=== PATIENT | male | born 1945 | race Caucasian/White ===

== ENCOUNTER 2018-09-12 08:46 | Day surgery (SDC) | payer MEDICARE, OTHER ==
[2018-09-12] MEDS ORDERED: Lidocaine 1% PF 2 ML SDV INJECT ONE (08:47)
[2018-09-12] MEDS ORDERED: Propofol 200 MG/20 ML SDV IV ONE (08:47)
[2018-09-12] MEDS ORDERED: Lactated Ringers 1,000 ML IV SCH (09:00)
--- NOTE | 2018-09-12 10:07 | PCM.OPNOTE ---
- General Post-Op/Procedure Note Date of Surgery/Procedure: 09/12/18 Operative Procedure(s): c scope Findings: scattered diverticulosis Pre Op Diagnosis: screening Post-Op Diagnosis: scattered diverticulosis Anesthesia Technique: MAC Primary Surgeon: Phi Arias Anesthesia Provider: Miguel Sagastume Pathology: none Complications: None Condition: Good Free Text/Narrative:: see dictation
--- NOTE | 2018-09-12 17:00 | OR ---
DATE OF OPERATION: 09/12/2018 SURGEON: Phi Arias MD PROCEDURE PERFORMED: Colonoscopy. PREOPERATIVE DIAGNOSIS: Screening for colon cancer. POSTOPERATIVE DIAGNOSIS: Colonic diverticulosis. INDICATIONS FOR PROCEDURE: This 73-year-old white male presents for followup colonoscopy. He was without complaints. DESCRIPTION OF PROCEDURE: After an excellent IV sedation was administered, digital rectal exam was performed. No marked abnormality was noted. Flexible colonoscope was inserted and advanced to the cecum. The prep was excellent and following findings were noted. Ascending colon, occasional diverticula. Transverse colon, occasional diverticula. Descending colon and sigmoid colon, occasional diverticula. Rectum and anus, unremarkable. Colon was deflated and scope was removed. RECOMMENDATIONS: Repeat colonoscopy on a p.r.n. basis given the patient's age or in 10 years. /[id number] /KENAN
== END 2018-09-12 11:00 | disposition home or self-care (01) ==
LOC: FB.SDS 08:46
PROVIDERS: ATTEND Surgery
DX: Z12.11 Encounter for screening for malignant neoplasm of colon (principal); K57.30 Diverticulosis of large intestine without perforation or abscess without bleeding; E11.9 Type 2 diabetes mellitus without complications; K21.9 Gastro-esophageal reflux disease without esophagitis; Z88.0 Allergy status to penicillin; Z88.2 Allergy status to sulfonamides; Z88.1 Allergy status to other antibiotic agents; Z88.8 Allergy status to other drugs, medicaments and biological substances; Z87.891 Personal history of nicotine dependence; Z87.19 Personal history of other diseases of the digestive system; Z79.899 Other long term (current) drug therapy
CPT/HCPCS: 00811; G0121; J2001; J2704; J7120

== ENCOUNTER 2020-11-24 09:11 | Emergency (ER) | payer MEDICARE, OTHER ==
[2020-11-24] MEDS ORDERED: Pantoprazole 40 MG Vial IVPUSH ONE (10:06)
--- NOTE | 2020-11-24 10:06 | EDM.PDOC ---
ED HPI GENERAL MEDICAL PROBLEM - General Chief Complaint: General Stated Complaint: LOW HEMOGLOBIN Time Seen by Provider: 11/24/20 09:57 Source of Information: Reports: Patient History Limitations: Reports: No Limitations - History of Present Illness INITIAL COMMENTS - FREE TEXT/NARRATIVE: Patient has a h/o Myelodysplastic Syndrome and presents with dyspnea on exertion x 1 week with black stools (which he attributes to iron supplements). Stool hemoccult has been negative. Baseline Hb is 10. In August 2020 his Hb dropped to 7 after back surgery, he was transfused at that time. PMD noted Hb 7.4 @2 weeks ago so was started on iron supplements. Hb was 5.4 yesterday, so his bottle hop sent him to [facility] for transfusion. He was admitted for outpatient therapy, however there were unidentifiable antibodies, so blood was sent to [place] for further analysis. This morning he developed black diarrhea. Patient denies abdominal pain, no prior h/o GI bleed or PUD. He had been on Ibuprofen @2 weeks ago after a tooth was pulled. He drinks alcohol rarely. Denies h/o CAD. - Related Data Allergies Allergy/AdvReac Type Severity Reaction Status Date / Time Penicillins Allergy Other Verified 11/23/20 17:51 Sulfa (Sulfonamide Allergy Rash Verified 11/23/20 17:51 Antibiotics) Tetracyclines Allergy Rash Verified 11/23/20 17:51 Home Meds: Home Meds Glucosamine HCl/Msm [Glucosamine MSM] 1 tab PO BID 09/11/18 [History] Melatonin 1 tab PO BEDTIME 09/11/18 [History] Mometasone Furoate [Nasonex [place]] 2 spray INH DAILY PRN 09/11/18 [History] Phenylephrine HCl/[place] Butter [Preparation H Suppository] 1 supp RECTAL DAILY PRN 09/11/18 [History] allopurinoL [Zyloprim] 1 tab PO DAILY 09/11/18 [History] Ferrous Sulfate 325 mg PO BID 11/23/20 [History] Finasteride 5 mg PO DAILY 11/24/20 [History] Tamsulosin [Tamsulosin 24 Hr] 0.4 mg PO DAILY 11/24/20 [History] Past Medical History HEENT History: Reports: Impaired Vision Cardiovascular History: Denies: CAD Gastrointestinal History: Reports: GERD Musculoskeletal History: Reports: Arthritis, Gout Hematologic History: Reports: Anemia, Other (See Below) (Myelodysplastic Syndrome) - Past Surgical History HEENT Surgical History: Reports: Cataract Surgery, Eye Surgery GI Surgical History: Reports: Cholecystectomy, Colonoscopy Neurological Surgical History: Reports: Laminectomy Musculoskeletal Surgical History: Reports: Other (See Below) Other Musculoskeletal Surgeries/Procedures:: back surgery Social & Family History - Family History Family Medical History: No Pertinent Family History - Caffeine Use Caffeine Use: Reports: Coffee ED ROS GENERAL - Review of Systems Review Of Systems: Comprehensive ROS is negative, except as noted in HPI. ED EXAM, GENERAL - Physical Exam Exam: See Below Exam Limited By: No Limitations General Appearance: Alert, WD/WN, No Apparent Distress Throat/Mouth: No Airway Compromise Head: Atraumatic, Normocephalic Neck: Full Range of Motion Respiratory/Chest: No Respiratory Distress, Lungs Clear, Normal Breath Sounds Cardiovascular: Regular Rate, Rhythm, No Murmur GI/Abdominal: Normal Bowel Sounds, Soft, Non-Tender, No Distention Rectal (Males) Exam: Heme - Stool Extremities: Normal Range of Motion Neurological: Alert, Oriented, Normal Cognition, Other (GCS=15) Psychiatric: Normal Affect, Normal Mood Skin Exam: Warm, Dry, Pallor Course - Vital Signs Last Recorded V/S: Last Vital Signs Temp 36.9 C 11/24/20 09:11 Pulse 98 11/24/20 09:11 Resp 18 11/24/20 09:11 BP 125/47 L 11/24/20 09:11 Pulse Ox 98 11/24/20 09:11 - Orders/Labs/Meds Labs: Laboratory Tests 11/24/20 11/24/20 Range/Units 10:20 10:20 WBC 2.8 L (3.2-10.1) x10-3/uL RBC 1.75 L (3.90-5.90) x10(6)uL Hgb 5.0 L* (12.9-17.7) g/dL Hct 15.7 L* (38.3-50.1) % MCV 90.2 (80.8-98.7) fL MCH 28.6 (27.0-33.3) pg MCHC 31.7 (28.7-35.3) g/dL RDW 32.9 H (12.4-15.0) % Plt Count 13 L* (117-477) x10(3)uL MPV 13.9 H (6.7-11.0) fL Add Manual Diff Yes Neutrophils % (Manual) 50 (46-82) % Lymphocytes % (Manual) 46 H (13-37) % Monocytes % (Manual) 3 L (4-12) % Eosinophils % (Manual) 1 (0-5) % Polychromasia Moderate H Poikilocytosis Many H Tear Drop Cells Moderate H Ovalocytes Moderate H Sodium 139 (135-145) mmol/L Potassium 4.6 (3.5-5.3) mmol/L Chloride 102 (100-110) mmol/L Carbon Dioxide 25 (21-32) mmol/L BUN 14 (7-18) mg/dL Creatinine 0.9 (0.70-1.30) mg/dL Est Cr Clr Drug Dosing 76.64 mL/min Estimated GFR (MDRD) > 60 (>60) BUN/Creatinine Ratio 15.6 (9-20) Glucose 104 (80-116) mg/dL Calcium 8.6 (8.6-10.2) mg/dL Total Bilirubin 1.8 H (0.1-1.3) mg/dL AST 11 (5-25) IU/L ALT 14 (12-36) U/L Alkaline Phosphatase 60 (56-112) IU/L Total Protein 6.6 (6.0-8.0) g/dL Albumin 3.6 (3.2-4.6) g/dL Globulin 3.0 g/dL Albumin/Globulin Ratio 1.2 Meds: Medications Discontinued Medications Generic Name Dose Route Start Last Admin Trade Name Freq PRN Reason Stop Dose Admin Pantoprazole Sodium 40 mg 11/24/20 10:06 Pantoprazole 40 Mg Vial IVPUSH 11/24/20 10:07 ONETIME ONE - Re-Assessments/Exams Free Text/Narrative Re-Assessment/Exam: 11/24/20 11:13 Dr. Rodríguez accepts patient for transfer to [facility] Departure - Departure Time of Disposition: 11:13 Disposition: DC/Tfer to Acute Hospital 02 Condition: Fair Clinical Impression: Pancytopenia, Myelodysplasia (myelodysplastic syndrome) - Discharge Information *PRESCRIPTION DRUG MONITORING PROGRAM REVIEWED*: No *COPY OF PRESCRIPTION DRUG MONITORING REPORT IN PATIENT KADE: Not Applicable Referrals: Hoang Suazo MD [Primary Care Provider] - Forms: ED Department Discharge Sepsis Event Note (ED) - Focused Exam Vital Signs: Vital Signs Temp Pulse Resp BP Pulse Ox 11/24/20 09:11 36.9 C 98 18 125/47 L 98
== END 2020-11-24 15:20 ==
LOC: FB.ED 09:11
DX: D46.9 Myelodysplastic syndrome, unspecified (principal); D61.818 Other pancytopenia; Z88.0 Allergy status to penicillin; Z88.1 Allergy status to other antibiotic agents; Z88.2 Allergy status to sulfonamides
CPT/HCPCS: 36415; 80053; 82272; 85025; 93010; 96374; 99285; C9113

== ENCOUNTER 2024-01-03 12:47 | Inpatient (IN) | payer MEDICARE, OTHER ==
[2024-01-03 13:51] LABS: BLOOD UREA NITROGEN,BUN 12 mg/dL (7-18); BUN/CREATININE RATIO 13.3 (9-20); CALCIUM 8.2 mg/dL (8.6-10.2); CARBON DIOXIDE,CO2 30 mmol/L (21-32); CHLORIDE,CL 103 mmol/L (100-110); CREATININE 0.9 mg/dL (0.70-1.30); EST CRCL DRUG DOSING (CG) 70.88 mL/min; ESTIMATED GFR 87 mL/min (>60); GLUCOSE RANDOM 85 mg/dL (80-116); POTASSIUM,K 4.4 mmol/L (3.5-5.3); SODIUM,NA 141 mmol/L (135-145)
[2024-01-03 13:57] LABS: A/G RATIO 0.8; ALANINE AMINOTRANSFERASE,ALT 13 U/L (12-36); ALKALINE PHOSPHATASE 77 IU/L (56-112); ASPARTATE AMNIOTRANSFERASE,AST 23 IU/L (5-25); BILIRUBIN TOTAL 1.3 mg/dL (0.1-1.3); PROTEIN TOTAL,TP 6.7 g/dL (6.0-8.0)
[2024-01-03] MEDS: Iopamidol 755 Mg/ML 100 ML Bottle IV SCH (14:49)
[2024-01-03] MEDS: Furosemide 20 MG/2 ML VIAL IVPUSH ONE (14:50)
[2024-01-03] MEDS ORDERED: Acetaminophen 650 MG Supp RECTAL PRN (17:48)
[2024-01-03] MEDS ORDERED: Acetaminophen 325 MG Tab PO PRN (17:48)
[2024-01-03] MEDS: Levofloxacin/Dextrose 5%-Water 750 MG in Premix Bag 1 BAG IV SCH (18:27)
[2024-01-03] MEDS: Sodium Chloride 0.9% 10 ML Syringe FLUSH PRN (20:00)
[2024-01-03] MEDS: Metoprolol Tartrate 25 MG Tab PO SCH (21:10)
[2024-01-03] MEDS: Heparin Sodium 5,000 Units/ML Vial SUBCUT SCH (21:11)
[2024-01-04] MEDS: Melatonin 3 MG Tab PO PRN (01:49)
[2024-01-04 06:24] LABS: HEMATOCRIT 27.9 % (38.3-50.1); HEMOGLOBIN 8.7 g/dL (12.9-17.7); MEAN CORPUSCULAR HEMOGLOBIN 26.7 pg (27.0-33.3); MEAN CORPUSCULAR HGB CONC 31.2 g/dL (28.7-35.3); MEAN CORPUSCULAR VOLUME 85.6 fL (80.8-98.7); MEAN PLATELET VOLUME 8.6 fL (6.7-11.0); PLATELET COUNT,PLT 314 x10(3)uL (117-477); RED BLOOD CELL COUNT 3.26 x10(6)uL (3.90-5.90); RED CELL DISTRIBUTION WIDTH 33.5 % (12.4-15.0); WHITE BLOOD CELL COUNT,WBC 5.3 x10-3/uL (3.2-10.1)
[2024-01-04 06:38] LABS: A/G RATIO 0.8; ALANINE AMINOTRANSFERASE,ALT 11 U/L (12-36); ALBUMIN 2.8 g/dL (3.2-4.6); ALKALINE PHOSPHATASE 73 IU/L (56-112); ASPARTATE AMNIOTRANSFERASE,AST 15 IU/L (5-25); BILIRUBIN TOTAL 1.5 mg/dL (0.1-1.3); BLOOD UREA NITROGEN,BUN 12 mg/dL (7-18); CALCIUM 7.9 mg/dL (8.6-10.2); CARBON DIOXIDE,CO2 29 mmol/L (21-32); CHLORIDE,CL 103 mmol/L (100-110); EST CRCL DRUG DOSING (CG) 61.85 mL/min; ESTIMATED GFR 77 mL/min (>60); GLUCOSE RANDOM 80 mg/dL (80-116); MAGNESIUM 1.7 mg/dL (1.8-2.5); POTASSIUM,K 4.2 mmol/L (3.5-5.3); PROTEIN TOTAL,TP 6.3 g/dL (6.0-8.0); SODIUM,NA 140 mmol/L (135-145)
[2024-01-04 07:07] LABS: BAND PERCENT MAN 1 % (0-6); EOSINOPHILS PERCENT MAN 2 % (0-5); LYMPHOCYTES PERCENT MAN 20 % (13-37); MONOCYTES PERCENT MAN 5 % (4-12); SEG NEUTROPHILS PERCENT MAN 72 % (46-82)
[2024-01-04 07:11] LABS: ANISOCYTOSIS MODERATE; HYPOCHROMASIA FEW; MICROCYTOSIS FEW; OVALOCYTES FEW; POIKILOCYTOSIS MODERATE
[2024-01-04] MEDS ORDERED: Carboxymethylcellulose Sodium 0.5% Ophth Soln 15 ML Bottle EYEBOTH PRN (09:47)
[2024-01-04] MEDS: Furosemide 40 MG/4 ML VIAL IVPUSH SCH ×2 (10:04→15:51)
[2024-01-04] MEDS: Magnesium Oxide 400 MG Tab PO ONE (10:04)
[2024-01-04] MEDS: Aspirin 81 MG Tab.EC PO SCH (10:05)
[2024-01-04] MEDS: Ascorbic Acid 500 MG Tab PO SCH (10:06)
[2024-01-04] MEDS: Cholecalciferol (Vitamin D3) 5,000 UNIT Cap PO SCH (10:06)
[2024-01-04] MEDS: Beta-Carotene (Vitamin A) w/Vitamin C & E plus Minerals Tab PO SCH (10:06)
[2024-01-04] MEDS: Psyllium 0.52 GM Cap PO SCH (13:58)
[2024-01-04] MEDS ORDERED: guaiFENesin/Dextromethorphan 100-10 MG/5 ML Soln 5 ML Cup PO PRN (14:05)
[2024-01-04 18:00] LABS: PROCALCITONIN 0.02 ng/mL
[2024-01-04] MEDS ORDERED: CLINDAMYCIN PHOSPHATE TOP SCH (21:00)
[2024-01-04] MEDS: Chondroitin/Glucosamine Cap PO SCH (21:22)
[2024-01-04] MEDS: Melatonin 3 MG Tab PO SCH (21:23)
[2024-01-04] MEDS: Loratadine 10 MG Tab PO SCH (21:36)
[2024-01-05 06:38] LABS: HEMATOCRIT 31.9 % (38.3-50.1); MEAN CORPUSCULAR HEMOGLOBIN 26.7 pg (27.0-33.3); MEAN CORPUSCULAR HGB CONC 31.3 g/dL (28.7-35.3); MEAN CORPUSCULAR VOLUME 85.3 fL (80.8-98.7); MEAN PLATELET VOLUME 8.7 fL (6.7-11.0); PLATELET COUNT,PLT 392 x10(3)uL (117-477); RED BLOOD CELL COUNT 3.74 x10(6)uL (3.90-5.90); RED CELL DISTRIBUTION WIDTH 33.2 % (12.4-15.0); WHITE BLOOD CELL COUNT,WBC 5.1 x10-3/uL (3.2-10.1)
[2024-01-05 06:47] LABS: A/G RATIO 0.8; ALANINE AMINOTRANSFERASE,ALT 15 U/L (12-36); ALBUMIN 3.1 g/dL (3.2-4.6); ALKALINE PHOSPHATASE 72 IU/L (56-112); ASPARTATE AMNIOTRANSFERASE,AST 16 IU/L (5-25); BILIRUBIN TOTAL 1.5 mg/dL (0.1-1.3); BLOOD UREA NITROGEN,BUN 16 mg/dL (7-18); CALCIUM 8.1 mg/dL (8.6-10.2); CARBON DIOXIDE,CO2 32 mmol/L (21-32); CHLORIDE,CL 102 mmol/L (100-110); EST CRCL DRUG DOSING (CG) 61.85 mL/min; ESTIMATED GFR 77 mL/min (>60); GLUCOSE RANDOM 86 mg/dL (80-116); POTASSIUM,K 3.9 mmol/L (3.5-5.3); PROTEIN TOTAL,TP 6.9 g/dL (6.0-8.0); SODIUM,NA 142 mmol/L (135-145)
[2024-01-05 07:38] LABS: EOSINOPHILS PERCENT MAN 5 % (0-5); LYMPHOCYTES PERCENT MAN 36 % (13-37); MONOCYTES PERCENT MAN 6 % (4-12); SEG NEUTROPHILS PERCENT MAN 53 % (46-82)
[2024-01-05 07:41] LABS: ANISOCYTOSIS MODERATE; HYPOCHROMASIA FEW; MICROCYTOSIS FEW; OVALOCYTES FEW; POIKILOCYTOSIS MODERATE
[2024-01-05] MEDS: Tamsulosin 0.4 MG Cap.ER PO SCH (08:08)
[2024-01-05] MEDS: Finasteride 5 MG Tab PO SCH (08:08)
[2024-01-05] MEDS: Multivitamin Tab PO SCH (08:08)
[2024-01-05] MEDS: Furosemide 40 MG Tab PO SCH (10:50)
[2024-01-05] MEDS: Triamcinolone Acetonide 40 MG/ML 1 ML SDV IM ONE (10:51)
[2024-01-05] MEDS ORDERED: Levofloxacin 750 MG Tab PO SCH (17:00)
[2024-01-07 01:16] LABS: STREPTOCOCCUS PNEUMONIAE AG,UR Negative (Negative)
[2024-01-08 00:38] LABS: LEGIONELLA PNEUMOPHILA AG,URN Negative (Negative)
== END 2024-01-05 16:00 | disposition home or self-care (01) | DRG 193 ==
LOC: FB.ED 12:47 → FB.MS 15:47
PROVIDERS: ADMIT Internal Medicine; ATTEND Family Medicine
DX: J18.9 Pneumonia, unspecified organism (principal); I50.31 Acute diastolic (congestive) heart failure; J96.01 Acute respiratory failure with hypoxia; J30.1 Allergic rhinitis due to pollen; D64.9 Anemia, unspecified; N40.1 Benign prostatic hyperplasia with lower urinary tract symptoms; Z95.2 Presence of prosthetic heart valve; Z95.0 Presence of cardiac pacemaker; I50.9 Heart failure, unspecified; Z79.01 Long term (current) use of anticoagulants; Z79.82 Long term (current) use of aspirin; Z90.49 Acquired absence of other specified parts of digestive tract; Z98.42 Cataract extraction status, left eye; Z79.899 Other long term (current) drug therapy; Z98.41 Cataract extraction status, right eye; Z90.89 Acquired absence of other organs; Z87.891 Personal history of nicotine dependence; Z88.0 Allergy status to penicillin; Z88.1 Allergy status to other antibiotic agents; Z88.2 Allergy status to sulfonamides
CPT/HCPCS: 36415; 71260; 80053; 83735; 83880; 84145; 84484; 85025; 87040; 87449; 87899; 93306; 96374; 97165-GO; 99222; 99232; 99238; 99285; 99285-25; A9270-GY; J1644; J1940; J1956; J3301; J3490; Q9967; U0002

== ENCOUNTER 2024-04-11 13:42 | Inpatient (IN) | payer MEDICARE, OTHER ==
[2024-04-11 14:32] LABS: HEMATOCRIT 24.1 % (38.3-50.1); HEMOGLOBIN 7.7 g/dL (12.9-17.7); MEAN CORPUSCULAR HEMOGLOBIN 29.3 pg (27.0-33.3); MEAN CORPUSCULAR HGB CONC 32.1 g/dL (28.7-35.3); MEAN CORPUSCULAR VOLUME 91.2 fL (80.8-98.7); MEAN PLATELET VOLUME 8.8 fL (6.7-11.0); PLATELET COUNT,PLT 642 x10(3)uL (117-477); RED BLOOD CELL COUNT 2.64 x10(6)uL (3.90-5.90); RED CELL DISTRIBUTION WIDTH 29.6 % (12.4-15.0); WHITE BLOOD CELL COUNT,WBC 11.5 x10-3/uL (3.2-10.1)
[2024-04-11 14:36] LABS: BLOOD UREA NITROGEN,BUN 12 mg/dL (7-18); BUN/CREATININE RATIO 13.3 (9-20); CALCIUM 8.1 mg/dL (8.6-10.2); CARBON DIOXIDE,CO2 29 mmol/L (21-32); CHLORIDE,CL 103 mmol/L (100-110); CREATININE 0.9 mg/dL (0.70-1.30); ESTIMATED GFR 87 mL/min (>60); GLUCOSE RANDOM 108 mg/dL (80-116); POTASSIUM,K 3.3 mmol/L (3.5-5.3); SODIUM,NA 142 mmol/L (135-145)
[2024-04-11] MEDS: Furosemide 40 MG/4 ML VIAL IVPUSH SCH (15:10)
[2024-04-11] MEDS: Sodium Chloride 0.9% 10 ML Syringe FLUSH PRN (15:20)
[2024-04-11 15:50] LABS: BAND PERCENT MAN 5 % (0-6); EOSINOPHILS PERCENT MAN 2 % (0-5); LYMPHOCYTES PERCENT MAN 12 % (13-37); MONOCYTES PERCENT MAN 4 % (4-12); SCHISTOCYTES FEW; SEG NEUTROPHILS PERCENT MAN 77 % (46-82)
[2024-04-11] MEDS ORDERED: Carboxymethylcellulose Sodium 0.5% Ophth Soln 15 ML Bottle EYEBOTH PRN (19:17)
[2024-04-11] MEDS: Lidocaine 4% 1 each Patch TOP SCH (21:34)
[2024-04-11] MEDS: Metoprolol Tartrate 25 MG Tab PO SCH (21:35)
[2024-04-11] MEDS: Chondroitin/Glucosamine Cap PO SCH (21:35)
[2024-04-11] MEDS: Psyllium 0.52 GM Cap PO SCH (21:35)
[2024-04-11] MEDS: Melatonin 3 MG Tab PO SCH (21:35)
[2024-04-11] MEDS: Beta-Carotene (Vitamin A) w/Vitamin C & E plus Minerals Tab PO SCH (21:35)
[2024-04-11] MEDS: Albuterol/Ipratropium 3.0-0.5 MG/3 ML Neb Soln INH PRN (21:55)
[2024-04-12 06:54] LABS: HEMATOCRIT 22.3 % (38.3-50.1); HEMOGLOBIN 7.2 g/dL (12.9-17.7); MEAN CORPUSCULAR HEMOGLOBIN 29.2 pg (27.0-33.3); MEAN CORPUSCULAR HGB CONC 32.3 g/dL (28.7-35.3); MEAN CORPUSCULAR VOLUME 90.4 fL (80.8-98.7); MEAN PLATELET VOLUME 9.1 fL (6.7-11.0); PLATELET COUNT,PLT 618 x10(3)uL (117-477); RED BLOOD CELL COUNT 2.46 x10(6)uL (3.90-5.90); RED CELL DISTRIBUTION WIDTH 29.6 % (12.4-15.0); WHITE BLOOD CELL COUNT,WBC 26.1 x10-3/uL (3.2-10.1)
[2024-04-12 07:02] LABS: A/G RATIO 0.8; ALANINE AMINOTRANSFERASE,ALT 43 U/L (12-36); ALBUMIN 2.8 g/dL (3.2-4.6); ALKALINE PHOSPHATASE 111 IU/L (56-112); ASPARTATE AMNIOTRANSFERASE,AST 18 IU/L (5-25); BILIRUBIN TOTAL 1.1 mg/dL (0.1-1.3); BLOOD UREA NITROGEN,BUN 9 mg/dL (7-18); CARBON DIOXIDE,CO2 29 mmol/L (21-32); CHLORIDE,CL 103 mmol/L (100-110); CREATININE 0.9 mg/dL (0.70-1.30); EST CRCL DRUG DOSING (CG) 68.72 mL/min; ESTIMATED GFR 87 mL/min (>60); GLUCOSE RANDOM 101 mg/dL (80-116); POTASSIUM,K 3.4 mmol/L (3.5-5.3); PROTEIN TOTAL,TP 6.4 g/dL (6.0-8.0); SODIUM,NA 139 mmol/L (135-145)
[2024-04-12 07:09] LABS: TROPONIN I 8.9 pg/mL (4.0-60.3)
[2024-04-12 07:14] LABS: C-REACTIVE PROTEIN 6.43 mg/dL (<0.50)
[2024-04-12] MEDS ORDERED: Carboxymethylcellulose Sodium 0.5% Ophth Soln 15 ML Bottle EYEBOTH PRN (07:36)
[2024-04-12 08:16] LABS: BAND PERCENT MAN 5 % (0-6); EOSINOPHILS PERCENT MAN 1 % (0-5); HYPOCHROMASIA FEW; LYMPHOCYTES PERCENT MAN 5 % (13-37); MONOCYTES PERCENT MAN 2 % (4-12); SEG NEUTROPHILS PERCENT MAN 87 % (46-82)
[2024-04-12 08:17] LABS: ANISOCYTOSIS MODERATE; GIANT PLATELETS MODERATE; MICROCYTOSIS MODERATE; OVALOCYTES FEW; POIKILOCYTOSIS MODERATE; TARGET CELLS FEW; TOXIC GRANULATION MODERATE (NOT SEEN)
[2024-04-12] MEDS: Cholecalciferol (Vitamin D3) 5,000 UNIT Cap PO SCH (08:19)
[2024-04-12] MEDS: Aspirin 81 MG Tab.EC PO SCH (08:19)
[2024-04-12] MEDS: Tamsulosin 0.4 MG Cap.ER PO SCH (08:20)
[2024-04-12] MEDS: Finasteride 5 MG Tab PO SCH (08:20)
[2024-04-12] MEDS: Psyllium 0.52 GM Cap PO SCH (11:19)
[2024-04-12] MEDS: Potassium Chloride 20 MEQ Tab.ER PO ONE (14:44)
[2024-04-12] MEDS: Furosemide 40 MG/4 ML VIAL IVPUSH ONE (14:45)
[2024-04-12] MEDS: Enoxaparin 40 MG/0.4 ML Syringe SUBCUT SCH (17:28)
[2024-04-12] MEDS: Acetaminophen 500 MG Tab PO PRN (17:34)
[2024-04-12] MEDS: Loratadine 10 MG Tab PO SCH (20:43)
[2024-04-13 06:30] LABS: HEMATOCRIT 22.9 % (38.3-50.1); HEMOGLOBIN 7.4 g/dL (12.9-17.7); MEAN CORPUSCULAR HEMOGLOBIN 29.1 pg (27.0-33.3); MEAN CORPUSCULAR HGB CONC 32.4 g/dL (28.7-35.3); MEAN CORPUSCULAR VOLUME 89.9 fL (80.8-98.7); MEAN PLATELET VOLUME 8.1 fL (6.7-11.0); PLATELET COUNT,PLT 610 x10(3)uL (117-477); RED BLOOD CELL COUNT 2.55 x10(6)uL (3.90-5.90); RED CELL DISTRIBUTION WIDTH 29.9 % (12.4-15.0); WHITE BLOOD CELL COUNT,WBC 14.6 x10-3/uL (3.2-10.1)
[2024-04-13 06:36] LABS: BLOOD UREA NITROGEN,BUN 12 mg/dL (7-18); CALCIUM 8.3 mg/dL (8.6-10.2); CARBON DIOXIDE,CO2 30 mmol/L (21-32); CHLORIDE,CL 105 mmol/L (100-110); EST CRCL DRUG DOSING (CG) 61.85 mL/min; ESTIMATED GFR 77 mL/min (>60); GLUCOSE RANDOM 101 mg/dL (80-116); POTASSIUM,K 3.7 mmol/L (3.5-5.3); SODIUM,NA 142 mmol/L (135-145)
[2024-04-13 06:55] LABS: BAND PERCENT MAN 2 % (0-6); EOSINOPHILS PERCENT MAN 9 % (0-5); LYMPHOCYTES PERCENT MAN 13 % (13-37); MONOCYTES PERCENT MAN 3 % (4-12); SEG NEUTROPHILS PERCENT MAN 73 % (46-82)
[2024-04-13 06:56] LABS: ANISOCYTOSIS MODERATE; HYPOCHROMASIA FEW; MICROCYTOSIS MODERATE; OVALOCYTES FEW; POIKILOCYTOSIS MODERATE; TARGET CELLS OCCASIONAL
[2024-04-13] MEDS: Furosemide 40 MG/4 ML VIAL IVPUSH SCH (08:26)
== END 2024-04-13 12:05 | disposition home or self-care (01) | DRG 291 ==
LOC: FB.MS 14:06
PROVIDERS: ADMIT Family Medicine; ATTEND Family Medicine
DX: I50.33 Acute on chronic diastolic (congestive) heart failure (principal); J96.01 Acute respiratory failure with hypoxia; D46.9 Myelodysplastic syndrome, unspecified; K21.9 Gastro-esophageal reflux disease without esophagitis; F41.9 Anxiety disorder, unspecified; M10.9 Gout, unspecified; H54.7 Unspecified visual loss; M19.90 Unspecified osteoarthritis, unspecified site; N40.1 Benign prostatic hyperplasia with lower urinary tract symptoms; R35.0 Frequency of micturition; E87.6 Hypokalemia; Z88.0 Allergy status to penicillin; Z95.4 Presence of other heart-valve replacement; Z88.2 Allergy status to sulfonamides; Z95.0 Presence of cardiac pacemaker; Z79.82 Long term (current) use of aspirin; Z98.49 Cataract extraction status, unspecified eye; Z90.49 Acquired absence of other specified parts of digestive tract; Z79.899 Other long term (current) drug therapy; Z98.890 Other specified postprocedural states; Z87.891 Personal history of nicotine dependence
CPT/HCPCS: 36415; 71046; 80048; 80053; 83605; 83880; 84484; 85025; 86140; 93005; 93010; 94150; 94640; 99222; 99232; 99238; A9270-GY; J1650; J1940; J3490; J7620

== ENCOUNTER 2024-11-21 11:48 | Inpatient (IN) | payer MEDICARE, OTHER ==
[2024-11-21] MEDS ORDERED: Sodium Chloride 0.9% 10 ML Syringe FLUSH PRN (12:18)
[2024-11-21 12:37] LABS: HEMATOCRIT 24.2 % (38.3-50.1); HEMOGLOBIN 7.9 g/dL (12.9-17.7); MEAN CORPUSCULAR HEMOGLOBIN 28.3 pg (27.0-33.3); MEAN CORPUSCULAR HGB CONC 32.9 g/dL (28.7-35.3); MEAN CORPUSCULAR VOLUME 86.1 fL (80.8-98.7); MEAN PLATELET VOLUME 8.7 fL (6.7-11.0); PLATELET COUNT,PLT 573 x10(3)uL (117-477); RED BLOOD CELL COUNT 2.81 x10(6)uL (3.90-5.90); RED CELL DISTRIBUTION WIDTH 29.3 % (12.4-15.0); WHITE BLOOD CELL COUNT,WBC 8.1 x10-3/uL (3.2-10.1)
[2024-11-21] MEDS: Sodium Chloride 0.9% 1,000 ML IV ONE (12:38)
[2024-11-21 12:56] LABS: BAND PERCENT MAN 2 % (0-6); EOSINOPHILS PERCENT MAN 2 % (0-5); HYPOCHROMASIA FEW; LYMPHOCYTES PERCENT MAN 9 % (13-37); MONOCYTES PERCENT MAN 6 % (4-12); POLYCHROMASIA MODERATE; SEG NEUTROPHILS PERCENT MAN 81 % (46-82)
[2024-11-21 12:57] LABS: ANISOCYTOSIS MANY; GIANT PLATELETS MODERATE; MICROCYTOSIS FEW; OVALOCYTES MODERATE
[2024-11-21 12:59] LABS: C-REACTIVE PROTEIN 12.02 mg/dL (<0.50)
[2024-11-21 13:08] LABS: CREATININE 1.1 mg/dL (0.70-1.30); ESTIMATED GFR 68 mL/min (>60)
[2024-11-21 13:09] LABS: BLOOD UREA NITROGEN,BUN 26 mg/dL (7-18); CALCIUM 8.6 mg/dL (8.6-10.2); CARBON DIOXIDE,CO2 21 mmol/L (21-32); CHLORIDE,CL 100 mmol/L (100-110); GLUCOSE RANDOM 121 mg/dL (80-116); POTASSIUM,K 3.9 mmol/L (3.5-5.3); SODIUM,NA 132 mmol/L (135-145)
[2024-11-21 13:15] LABS: BUN/CREATININE RATIO 24.5 (9-20); PROTEIN TOTAL,TP 7.1 g/dL (6.0-8.0)
[2024-11-21 13:16] LABS: A/G RATIO 0.8; ALANINE AMINOTRANSFERASE,ALT 38 U/L (12-36); ALBUMIN 3.1 g/dL (3.2-4.6); ALKALINE PHOSPHATASE 121 IU/L (56-112); ASPARTATE AMNIOTRANSFERASE,AST 31 IU/L (5-25); BILIRUBIN TOTAL 1.5 mg/dL (0.1-1.3)
[2024-11-21 13:17] LABS: LACTIC ACID 0.9 mmol/L (0.4-2.0)
[2024-11-21] MEDS: Iopamidol 755 Mg/ML 100 ML Bottle IV SCH (13:36)
[2024-11-21] MEDS ORDERED: [UNRECOGNIZED DRUG - OTHER] PO PRN (16:04)
[2024-11-21] MEDS ORDERED: Carboxymethylcellulose Sodium 0.5% Ophth Soln 15 ML Bottle EYEBOTH PRN (16:04)
[2024-11-21] MEDS ORDERED: Triamcinolone Acetonide 0.1% Crm 15 GM Tube TOP PRN (16:04)
[2024-11-21] MEDS ORDERED: Acetaminophen 650 MG Supp RECTAL PRN (16:07)
[2024-11-21] MEDS ORDERED: Acetaminophen 325 MG Tab PO PRN (16:07)
[2024-11-21] MEDS ORDERED: Benzonatate 100 MG Cap PO PRN (17:05)
[2024-11-21] MEDS: Furosemide 40 MG/4 ML VIAL IVPUSH SCH (17:35)
[2024-11-21] MEDS: Cefepime 2 GM Vial IVPUSH SCH (17:39)
[2024-11-21] MEDS: VANCOmycin 2 GM/400 ML 2 GM in Premix Bag 1 BAG IV ONE (17:45)
[2024-11-21] MEDS: Heparin Sodium 5,000 Units/ML Vial SUBCUT SCH (20:23)
[2024-11-21] MEDS: Chondroitin/Glucosamine Cap PO SCH (20:23)
[2024-11-21] MEDS: Beta-Carotene (Vitamin A) w/Vitamin C & E plus Minerals Tab PO SCH (20:23)
[2024-11-21] MEDS: Lidocaine 4% Patch TOP SCH (20:23)
[2024-11-21] MEDS: Metoprolol Tartrate 25 MG Tab PO SCH (20:23)
[2024-11-21] MEDS: Melatonin 3 MG Tab PO SCH (20:24)
[2024-11-22] MEDS: Sodium Chloride 0.9% 10 ML Syringe FLUSH PRN (00:56)
[2024-11-22] MEDS: Albuterol/Ipratropium 3.0-0.5 MG/3 ML Neb Soln NEB SCH (03:30)
[2024-11-22 06:25] LABS: HEMATOCRIT 24.2 % (38.3-50.1); HEMOGLOBIN 7.7 g/dL (12.9-17.7); MEAN CORPUSCULAR HEMOGLOBIN 27.4 pg (27.0-33.3); MEAN CORPUSCULAR HGB CONC 31.8 g/dL (28.7-35.3); MEAN CORPUSCULAR VOLUME 86.3 fL (80.8-98.7); MEAN PLATELET VOLUME 8.4 fL (6.7-11.0); PLATELET COUNT,PLT 548 x10(3)uL (117-477); RED CELL DISTRIBUTION WIDTH 28.7 % (12.4-15.0)
[2024-11-22 06:33] LABS: WHITE BLOOD CELL COUNT,WBC 31.7 x10-3/uL (3.2-10.1)
[2024-11-22 06:36] LABS: A/G RATIO 0.7; ALANINE AMINOTRANSFERASE,ALT 62 U/L (12-36); ALBUMIN 2.8 g/dL (3.2-4.6); ALKALINE PHOSPHATASE 136 IU/L (56-112); ASPARTATE AMNIOTRANSFERASE,AST 49 IU/L (5-25); BILIRUBIN TOTAL 1.1 mg/dL (0.1-1.3); BLOOD UREA NITROGEN,BUN 23 mg/dL (7-18); BUN/CREATININE RATIO 20.9 (9-20); CALCIUM 8.2 mg/dL (8.6-10.2); CARBON DIOXIDE,CO2 23 mmol/L (21-32); CHLORIDE,CL 103 mmol/L (100-110); CREATININE 1.1 mg/dL (0.70-1.30); ESTIMATED GFR 68 mL/min (>60); GLUCOSE RANDOM 113 mg/dL (80-116); POTASSIUM,K 3.3 mmol/L (3.5-5.3); PROTEIN TOTAL,TP 6.8 g/dL (6.0-8.0); SODIUM,NA 136 mmol/L (135-145)
[2024-11-22 06:49] LABS: ANISOCYTOSIS MODERATE; BAND PERCENT MAN 3 % (0-6); EOSINOPHILS PERCENT MAN 1 % (0-5); LYMPHOCYTES PERCENT MAN 5 % (13-37); MONOCYTES PERCENT MAN 1 % (4-12); POIKILOCYTOSIS FEW; SEG NEUTROPHILS PERCENT MAN 90 % (46-82)
[2024-11-22 06:50] LABS: GIANT PLATELETS MODERATE; HYPOCHROMASIA FEW; MICROCYTOSIS FEW; OVALOCYTES FEW; POLYCHROMASIA OCCASIONAL
[2024-11-22] MEDS ORDERED: Carboxymethylcellulose Sodium 0.5% Ophth Soln 15 ML Bottle EYEBOTH PRN (07:51)
[2024-11-22] MEDS: Finasteride 5 MG Tab PO SCH (08:24)
[2024-11-22] MEDS: Cholecalciferol (Vitamin D3) 5,000 UNIT Cap PO SCH (08:25)
[2024-11-22] MEDS: Aspirin 81 MG Tab.EC PO SCH (08:25)
[2024-11-22] MEDS: Multivitamin Tab PO SCH (08:25)
[2024-11-22] MEDS: Tamsulosin 0.4 MG Cap.ER PO SCH (08:25)
[2024-11-22 10:37] LABS: HEMOGLOBIN A1C 5.4 % (<5.7)
[2024-11-22] MEDS: VANCOmycin 1.5 GM/300 ML 1.5 GM in Premix Bag 1 BAG IV SCH (16:41)
[2024-11-22] MEDS: Potassium Chloride 20 MEQ Tab.ER PO SCH (20:31)
[2024-11-22] MEDS: Loratadine 10 MG Tab PO SCH (20:32)
[2024-11-22] MEDS: Magnesium Hydroxide 400 MG/5 ML Susp 30 ML Cup PO PRN (23:13)
[2024-11-23 06:39] LABS: HEMATOCRIT 25.2 % (38.3-50.1); MEAN CORPUSCULAR HEMOGLOBIN 27.7 pg (27.0-33.3); MEAN CORPUSCULAR HGB CONC 31.8 g/dL (28.7-35.3); MEAN CORPUSCULAR VOLUME 86.9 fL (80.8-98.7); PLATELET COUNT,PLT 530 x10(3)uL (117-477); RED BLOOD CELL COUNT 2.91 x10(6)uL (3.90-5.90); RED CELL DISTRIBUTION WIDTH 28.6 % (12.4-15.0); WHITE BLOOD CELL COUNT,WBC 15.3 x10-3/uL (3.2-10.1)
[2024-11-23 06:48] LABS: A/G RATIO 0.7; ALANINE AMINOTRANSFERASE,ALT 71 U/L (12-36); ALBUMIN 2.8 g/dL (3.2-4.6); ALKALINE PHOSPHATASE 163 IU/L (56-112); ASPARTATE AMNIOTRANSFERASE,AST 43 IU/L (5-25); BILIRUBIN TOTAL 0.9 mg/dL (0.1-1.3); BLOOD UREA NITROGEN,BUN 22 mg/dL (7-18); BUN/CREATININE RATIO 18.3 (9-20); CALCIUM 8.5 mg/dL (8.6-10.2); CARBON DIOXIDE,CO2 28 mmol/L (21-32); CHLORIDE,CL 105 mmol/L (100-110); CREATININE 1.2 mg/dL (0.70-1.30); EST CRCL DRUG DOSING (CG) 50.69 mL/min; ESTIMATED GFR 61 mL/min (>60); GLUCOSE RANDOM 110 mg/dL (80-116); POTASSIUM,K 3.7 mmol/L (3.5-5.3); SODIUM,NA 141 mmol/L (135-145)
[2024-11-23 07:04] LABS: LYMPHOCYTES PERCENT MAN 5 % (13-37); MONOCYTES PERCENT MAN 4 % (4-12); SEG NEUTROPHILS PERCENT MAN 91 % (46-82)
[2024-11-23 07:05] LABS: ANISOCYTOSIS MODERATE; MICROCYTOSIS FEW; OVALOCYTES RARE; POIKILOCYTOSIS MODERATE; TARGET CELLS FEW; TEARDROP CELLS FEW
[2024-11-23 07:06] LABS: GIANT PLATELETS FEW; STOMATOCYTES RARE
[2024-11-23] MEDS: Furosemide 40 MG Tab PO SCH (08:57)
[2024-11-23 19:15] LABS: MRSA DETECTION BY PCR Not Detected
[2024-11-24 03:16] LABS: STREPTOCOCCUS PNEUMONIAE AG,UR Negative (Negative)
[2024-11-24 03:20] LABS: LEGIONELLA PNEUMOPHILA AG,URN Negative (Negative)
[2024-11-24 06:22] LABS: HEMATOCRIT 24.5 % (38.3-50.1); HEMOGLOBIN 7.9 g/dL (12.9-17.7); MEAN CORPUSCULAR HEMOGLOBIN 27.8 pg (27.0-33.3); MEAN CORPUSCULAR HGB CONC 32.3 g/dL (28.7-35.3); MEAN CORPUSCULAR VOLUME 86.2 fL (80.8-98.7); MEAN PLATELET VOLUME 8.1 fL (6.7-11.0); PLATELET COUNT,PLT 531 x10(3)uL (117-477); RED BLOOD CELL COUNT 2.84 x10(6)uL (3.90-5.90); RED CELL DISTRIBUTION WIDTH 28.7 % (12.4-15.0); WHITE BLOOD CELL COUNT,WBC 11.5 x10-3/uL (3.2-10.1)
[2024-11-24 06:36] LABS: A/G RATIO 0.7; ALANINE AMINOTRANSFERASE,ALT 59 U/L (12-36); ALBUMIN 2.8 g/dL (3.2-4.6); ALKALINE PHOSPHATASE 138 IU/L (56-112); ASPARTATE AMNIOTRANSFERASE,AST 27 IU/L (5-25); BILIRUBIN TOTAL 0.9 mg/dL (0.1-1.3); BLOOD UREA NITROGEN,BUN 19 mg/dL (7-18); CALCIUM 8.5 mg/dL (8.6-10.2); CARBON DIOXIDE,CO2 26 mmol/L (21-32); CHLORIDE,CL 105 mmol/L (100-110); EST CRCL DRUG DOSING (CG) 60.83 mL/min; ESTIMATED GFR 76 mL/min (>60); GLUCOSE RANDOM 105 mg/dL (80-116); POTASSIUM,K 3.9 mmol/L (3.5-5.3); PROTEIN TOTAL,TP 6.7 g/dL (6.0-8.0); SODIUM,NA 138 mmol/L (135-145)
[2024-11-24 06:43] LABS: ANISOCYTOSIS MODERATE; BAND PERCENT MAN 1 % (0-6); EOSINOPHILS PERCENT MAN 7 % (0-5); HYPOCHROMASIA FEW; LYMPHOCYTES PERCENT MAN 8 % (13-37); MONOCYTES PERCENT MAN 2 % (4-12); POIKILOCYTOSIS FEW; POLYCHROMASIA OCCASIONAL; SEG NEUTROPHILS PERCENT MAN 82 % (46-82)
[2024-11-24 06:44] LABS: GIANT PLATELETS MODERATE
[2024-11-24] MEDS: Azithromycin 500 MG Tab PO ONE (10:13)
[2024-11-25 06:29] LABS: HEMATOCRIT 26.1 % (38.3-50.1); HEMOGLOBIN 8.3 g/dL (12.9-17.7); MEAN CORPUSCULAR HEMOGLOBIN 27.6 pg (27.0-33.3); MEAN CORPUSCULAR HGB CONC 31.9 g/dL (28.7-35.3); MEAN CORPUSCULAR VOLUME 86.4 fL (80.8-98.7); MEAN PLATELET VOLUME 8.2 fL (6.7-11.0); PLATELET COUNT,PLT 564 x10(3)uL (117-477); RED BLOOD CELL COUNT 3.01 x10(6)uL (3.90-5.90); RED CELL DISTRIBUTION WIDTH 28.7 % (12.4-15.0); WHITE BLOOD CELL COUNT,WBC 10.5 x10-3/uL (3.2-10.1)
[2024-11-25 06:38] LABS: A/G RATIO 0.7; ALANINE AMINOTRANSFERASE,ALT 42 U/L (12-36); ALBUMIN 2.8 g/dL (3.2-4.6); ALKALINE PHOSPHATASE 120 IU/L (56-112); ASPARTATE AMNIOTRANSFERASE,AST 20 IU/L (5-25); BILIRUBIN TOTAL 0.8 mg/dL (0.1-1.3); BLOOD UREA NITROGEN,BUN 17 mg/dL (7-18); BUN/CREATININE RATIO 15.5 (9-20); CALCIUM 8.8 mg/dL (8.6-10.2); CARBON DIOXIDE,CO2 27 mmol/L (21-32); CHLORIDE,CL 107 mmol/L (100-110); CREATININE 1.1 mg/dL (0.70-1.30); ESTIMATED GFR 68 mL/min (>60); GLUCOSE RANDOM 101 mg/dL (80-116); POTASSIUM,K 3.9 mmol/L (3.5-5.3); PROTEIN TOTAL,TP 6.7 g/dL (6.0-8.0); SODIUM,NA 140 mmol/L (135-145)
[2024-11-25 06:47] LABS: BAND PERCENT MAN 2 % (0-6); EOSINOPHILS PERCENT MAN 6 % (0-5); LYMPHOCYTES PERCENT MAN 17 % (13-37); MONOCYTES PERCENT MAN 3 % (4-12); SEG NEUTROPHILS PERCENT MAN 72 % (46-82)
[2024-11-25 06:53] LABS: ANISOCYTOSIS MODERATE; HYPOCHROMASIA FEW; MICROCYTOSIS FEW; POIKILOCYTOSIS FEW; POLYCHROMASIA OCCASIONAL
[2024-11-25 06:55] LABS: GIANT PLATELETS FEW; OVALOCYTES FEW
[2024-11-25] MEDS: Azithromycin 250 MG Tab PO SCH (08:53)
== END 2024-11-25 09:50 | disposition home or self-care (01) | DRG 193 ==
LOC: FB.ED 11:48 → FB.MS 14:15
PROVIDERS: ADMIT Internal Medicine; ATTEND Internal Medicine
DX: J18.9 Pneumonia, unspecified organism (principal); I50.33 Acute on chronic diastolic (congestive) heart failure; J96.01 Acute respiratory failure with hypoxia; D84.9 Immunodeficiency, unspecified; E87.6 Hypokalemia; I50.9 Heart failure, unspecified; H54.7 Unspecified visual loss; K21.9 Gastro-esophageal reflux disease without esophagitis; M19.90 Unspecified osteoarthritis, unspecified site; R16.1 Splenomegaly, not elsewhere classified; J31.0 Chronic rhinitis; D46.9 Myelodysplastic syndrome, unspecified; Z88.1 Allergy status to other antibiotic agents; Z79.899 Other long term (current) drug therapy; Z95.2 Presence of prosthetic heart valve; Z88.0 Allergy status to penicillin; Z85.820 Personal history of malignant melanoma of skin; Z98.49 Cataract extraction status, unspecified eye; Z98.890 Other specified postprocedural states; Z90.49 Acquired absence of other specified parts of digestive tract; Z88.8 Allergy status to other drugs, medicaments and biological substances; Z88.2 Allergy status to sulfonamides; Z79.82 Long term (current) use of aspirin; Z95.0 Presence of cardiac pacemaker; Z87.891 Personal history of nicotine dependence
CPT/HCPCS: 36415; 71275; 80053; 83605; 83735; 83880; 84484; 85025; 86140; 93005; 93010; 96360; 99285 ×2; J7030; Q9967; 80202; 83036; 87040; 87070; 87077; 87186; 87205; 87426-QW; 87449; 87641; 87899; 94150; 94640; 97161-GP; 97165-GO; 97535-GO; 99223; 99232; 99238; A9270-GY; J0692; J1644; J1938; J3372

== ENCOUNTER 2025-04-16 12:04 | Inpatient (IN) | payer MEDICARE, OTHER ==
[2025-04-16 12:45] LABS: BASOPHILS ABSOLUTE AUTO 0.1 x10-3/uL (0.0-0.3); BASOPHILS PERCENT AUTO 1.0 % (0.3-3.8); EOSINOPHILS ABSOLUTE AUTO 0.3 x10-3/uL (0.0-0.6); EOSINOPHILS PERCENT AUTO 3.3 % (0.1-6.8); LYMPHOCYTES ABSOLUTE AUTO 1.2 x10-3/uL (0.5-4.5); LYMPHOCYTES PERCENT AUTO 12.6 % (15.8-45.3); MEAN PLATELET VOLUME 8.6 fL (6.7-11.0); MONOCYTES ABSOLUTE AUTO 0.7 x10-3/uL (0.0-1.2); MONOCYTES PERCENT AUTO 7.4 % (5.5-15.2); NEUTROPHILS ABSOLUTE AUTO 7.2 x10-3/uL (1.7-6.9); NEUTROPHILS PERCENT AUTO 75.7 % (40.3-71.8); PLATELET COUNT,PLT 783 x10(3)uL (117-477); RED BLOOD CELL COUNT 3.22 x10(6)uL (3.90-5.90); RED CELL DISTRIBUTION WIDTH 29.2 % (12.4-15.0); WHITE BLOOD CELL COUNT,WBC 9.6 x10-3/uL (3.2-10.1)
[2025-04-16 12:48] LABS: BLOOD UREA NITROGEN,BUN 17 mg/dL (7-18); CARBON DIOXIDE,CO2 28 mmol/L (21-32); CHLORIDE,CL 102 mmol/L (100-110); CREATININE 0.9 mg/dL (0.70-1.30); ESTIMATED GFR 86 mL/min (>60); GLUCOSE RANDOM 99 mg/dL (80-116); POTASSIUM,K 4.2 mmol/L (3.5-5.3); SODIUM,NA 139 mmol/L (135-145)
[2025-04-16 12:51] LABS: BASE EXCESS VENOUS,POC 0 mmol/L (-2 - 3+); PCO2 VENOUS,POC 41 mmHg (41-51); PH VENOUS,POC 7.39 pH Units (7.32-7.43)
[2025-04-16 12:54] LABS: A/G RATIO 0.7; ALANINE AMINOTRANSFERASE,ALT 61 U/L (12-36); ASPARTATE AMNIOTRANSFERASE,AST 40 IU/L (5-25); BILIRUBIN TOTAL 1.1 mg/dL (0.1-1.3); PROTEIN TOTAL,TP 7.4 g/dL (6.0-8.0)
[2025-04-16] MEDS ORDERED: Triamcinolone Acetonide 0.1% Crm 15 GM Tube TOP PRN (17:44)
[2025-04-16] MEDS ORDERED: Carboxymethylcellulose Sodium 0.5% Ophth Soln 15 ML Bottle EYEBOTH PRN (17:57)
[2025-04-16] MEDS: Furosemide 40 MG/4 ML VIAL IVPUSH SCH (18:23)
[2025-04-16] MEDS: Sodium Chloride 0.9% 10 ML Syringe FLUSH PRN (18:23)
[2025-04-16] MEDS: Levofloxacin/Dextrose 5%-Water 750 MG in Premix Bag 1 BAG IV SCH (18:23)
[2025-04-16] MEDS: Chondroitin/Glucosamine Cap PO SCH (20:10)
[2025-04-16] MEDS: Beta-Carotene (Vitamin A) w/Vitamin C & E plus Minerals Tab PO SCH (20:11)
[2025-04-16] MEDS: CETIRIZINE HCL 10 MG PO SCH (20:12)
[2025-04-17 06:51] LABS: MEAN PLATELET VOLUME 8.2 fL (6.7-11.0); PLATELET COUNT,PLT 690 x10(3)uL (117-477); RED BLOOD CELL COUNT 2.99 x10(6)uL (3.90-5.90); RED CELL DISTRIBUTION WIDTH 28.7 % (12.4-15.0); WHITE BLOOD CELL COUNT,WBC 7.7 x10-3/uL (3.2-10.1)
[2025-04-17 06:55] LABS: BLOOD UREA NITROGEN,BUN 18 mg/dL (7-18); CARBON DIOXIDE,CO2 27 mmol/L (21-32); CHLORIDE,CL 103 mmol/L (100-110); CREATININE 0.9 mg/dL (0.70-1.30); EST CRCL DRUG DOSING (CG) 67.59 mL/min; ESTIMATED GFR 86 mL/min (>60); GLUCOSE RANDOM 94 mg/dL (80-116); POTASSIUM,K 3.9 mmol/L (3.5-5.3); SODIUM,NA 139 mmol/L (135-145)
[2025-04-17 07:15] LABS: BAND PERCENT MAN 2 % (0-6); EOSINOPHILS PERCENT MAN 3 % (0-5); LYMPHOCYTES PERCENT MAN 24 % (13-37); MONOCYTES PERCENT MAN 3 % (4-12); SEG NEUTROPHILS PERCENT MAN 68 % (46-82)
[2025-04-17] MEDS: Cholecalciferol (Vitamin D3) 5,000 UNIT Cap PO SCH (08:53)
[2025-04-17] MEDS ORDERED: REFRESH TEARS EYEBOTH PRN (09:49)
[2025-04-18 07:15] LABS: MEAN PLATELET VOLUME 8.4 fL (6.7-11.0); PLATELET COUNT,PLT 650 x10(3)uL (117-477); RED BLOOD CELL COUNT 3.17 x10(6)uL (3.90-5.90); RED CELL DISTRIBUTION WIDTH 28.6 % (12.4-15.0); WHITE BLOOD CELL COUNT,WBC 6.0 x10-3/uL (3.2-10.1)
[2025-04-18 07:23] LABS: A/G RATIO 0.6; ALANINE AMINOTRANSFERASE,ALT 56 U/L (12-36); ASPARTATE AMNIOTRANSFERASE,AST 33 IU/L (5-25); BILIRUBIN TOTAL 0.9 mg/dL (0.1-1.3); BLOOD UREA NITROGEN,BUN 20 mg/dL (7-18); CARBON DIOXIDE,CO2 28 mmol/L (21-32); CHLORIDE,CL 104 mmol/L (100-110); CREATININE 0.9 mg/dL (0.70-1.30); EST CRCL DRUG DOSING (CG) 67.59 mL/min; ESTIMATED GFR 86 mL/min (>60); GLUCOSE RANDOM 94 mg/dL (80-116); POTASSIUM,K 4.2 mmol/L (3.5-5.3); PROTEIN TOTAL,TP 7.1 g/dL (6.0-8.0); SODIUM,NA 142 mmol/L (135-145)
[2025-04-18 07:37] LABS: BAND PERCENT MAN 1 % (0-6); EOSINOPHILS PERCENT MAN 6 % (0-5); LYMPHOCYTES PERCENT MAN 25 % (13-37); MONOCYTES PERCENT MAN 4 % (4-12); SEG NEUTROPHILS PERCENT MAN 64 % (46-82)
[2025-04-18 09:50] LABS: PRO B-TYPE NATRIUR PEPT,BNPPRO 1104.0 pg/mL (<=450)
[2025-04-18] MEDS: Filgrastim-AYOW (Releuko) 300 MCG/0.5 ML Syringe SUBCUT ONE (12:46)
[2025-04-18 18:40] LABS: MRSA DETECTION BY PCR Not Detected
[2025-04-18 23:02] LABS: STREPTOCOCCUS PNEUMONIAE AG,UR Negative (Negative)
[2025-04-19 01:08] LABS: LEGIONELLA PNEUMOPHILA AG,URN Negative (Negative)
[2025-04-19 06:43] LABS: MEAN PLATELET VOLUME 8.6 fL (6.7-11.0); PLATELET COUNT,PLT 757 x10(3)uL (117-477); RED BLOOD CELL COUNT 3.26 x10(6)uL (3.90-5.90); RED CELL DISTRIBUTION WIDTH 28.8 % (12.4-15.0)
[2025-04-19 06:57] LABS: A/G RATIO 0.6; ALANINE AMINOTRANSFERASE,ALT 54 U/L (12-36); ASPARTATE AMNIOTRANSFERASE,AST 33 IU/L (5-25); BILIRUBIN TOTAL 0.7 mg/dL (0.1-1.3); BLOOD UREA NITROGEN,BUN 18 mg/dL (7-18); CARBON DIOXIDE,CO2 27 mmol/L (21-32); CHLORIDE,CL 103 mmol/L (100-110); CREATININE 0.9 mg/dL (0.70-1.30); EST CRCL DRUG DOSING (CG) 67.59 mL/min; ESTIMATED GFR 86 mL/min (>60); GLUCOSE RANDOM 98 mg/dL (80-116); POTASSIUM,K 4.0 mmol/L (3.5-5.3); PROTEIN TOTAL,TP 7.2 g/dL (6.0-8.0); SODIUM,NA 139 mmol/L (135-145)
[2025-04-19 07:05] LABS: WHITE BLOOD CELL COUNT,WBC 37.6 x10-3/uL (3.2-10.1)
[2025-04-19 07:09] LABS: BAND PERCENT MAN 3 % (0-6); EOSINOPHILS PERCENT MAN 2 % (0-5); LYMPHOCYTES PERCENT MAN 5 % (13-37); METAMYELOCYTE PERCENT MAN 1 % (0-0); MONOCYTES PERCENT MAN 2 % (4-12); SEG NEUTROPHILS PERCENT MAN 87 % (46-82)
[2025-04-19 09:01] LABS: MEAN PLATELET VOLUME 8.2 fL (6.7-11.0); RED CELL DISTRIBUTION WIDTH 29.0 % (12.4-15.0)
[2025-04-19 09:05] LABS: WHITE BLOOD CELL COUNT,WBC 42.9 x10-3/uL (3.2-10.1)
[2025-04-19 09:06] LABS: PLATELET COUNT,PLT 842 x10(3)uL (117-477); RED BLOOD CELL COUNT 3.67 x10(6)uL (3.90-5.90)
[2025-04-19 09:31] LABS: BAND PERCENT MAN 8 % (0-6); EOSINOPHILS PERCENT MAN 2 % (0-5); LYMPHOCYTES PERCENT MAN 3 % (13-37); METAMYELOCYTE PERCENT MAN 1 % (0-0); MONOCYTES PERCENT MAN 1 % (4-12); SEG NEUTROPHILS PERCENT MAN 85 % (46-82)
== END 2025-04-19 11:13 | disposition home or self-care (01) | DRG 193 ==
LOC: FB.ED 12:04 → FB.MS 16:22
PROVIDERS: ADMIT Internal Medicine; ATTEND Family Medicine
DX: J18.9 Pneumonia, unspecified organism (principal); J96.01 Acute respiratory failure with hypoxia; D64.9 Anemia, unspecified; I50.32 Chronic diastolic (congestive) heart failure; R79.89 Other specified abnormal findings of blood chemistry; D46.9 Myelodysplastic syndrome, unspecified; M19.90 Unspecified osteoarthritis, unspecified site; K21.9 Gastro-esophageal reflux disease without esophagitis; M10.9 Gout, unspecified; H54.7 Unspecified visual loss; T45.8X5A Adverse effect of other primarily systemic and hematological agents, initial encounter; Z88.2 Allergy status to sulfonamides; Z88.8 Allergy status to other drugs, medicaments and biological substances; Z79.899 Other long term (current) drug therapy; Z79.82 Long term (current) use of aspirin; Z79.1 Long term (current) use of non-steroidal anti-inflammatories (NSAID); Z95.2 Presence of prosthetic heart valve; Z95.0 Presence of cardiac pacemaker; Z98.49 Cataract extraction status, unspecified eye; Z90.49 Acquired absence of other specified parts of digestive tract; Z98.890 Other specified postprocedural states; Z87.891 Personal history of nicotine dependence; Z88.0 Allergy status to penicillin
CPT/HCPCS: 36415; 71045; 71045-26; 80048; 80053; 83605; 83735; 83880; 84484; 85025; 86140; 87040; 87428-QW; 87449; 87641; 87899; 88104; 93005; 93010; 93306; 94150; 97165-GO; 99223; 99232; 99239; 99285; A9270-GY; J1938; J1956; Q5125